=== PATIENT | female | born 1985 | race Caucasian/White ===

== ENCOUNTER → 2019-11-24 | Outpatient (CLI) | payer BC ==
[2019-11-24 07:44] LABS: HCT 44.5 % (34.0-46.0); HGB 14.6 gm/dL (11.4-16.0); MCH 28.8 pg (25.0-35.0); MCHC 32.8 g/dL (31.0-37.0); MCV 87.9 fL (80.0-100.0); Mean Platelet Volume 8.9; Platelet Count 276 k/uL (150-450); RBC 5.06 m/uL (3.80-5.40); WBC 7.6 k/uL (3.8-10.6)
[2019-11-24 13:08] LABS: ALT 34 U/L (8-44); AST 30 U/L (13-35); African American GFR (CKD) 130.1 (60.0-200.0); Alkaline Phosphatase 89 U/L (41-126); Amylase 74 U/L (23-121); BUN/Creat Ratio 15.71 Ratio (12.00-20.00); Bilirubin, Conjugated <0.20 mg/dL (0.20-0.40); Calcium 9.3 mg/dL (8.7-10.3); Carbon Dioxide 24.9 mmol/L (21.6-31.8); Chloride 106 mmol/L (96-109); Chol/HDL Ratio 2.63; Cholesterol 155 mg/dL (0-200); Glucose 95 mg/dL (70-110); LDL Cholesterol,Calculated 82.6 mg/dL (0.0-131.0); Non-African American GFR(CKD) 112.3 (60.0-200.0); Potassium 4.1 mmol/L (3.5-5.5); Sodium 139 mmol/L (135-145); Total Bilirubin 0.4 mg/dL (0.2-1.2); Total Protein 6.2 g/dL (6.2-8.2)
== END | disposition home or self-care (01) ==
LOC: LABWHC1 07:01
PROVIDERS: ATTEND Psychiatry & Neurology Pain Medicine
DX: Z00.00 Encounter for general adult medical examination without abnormal findings (principal); Z13.220 Encounter for screening for lipoid disorders; R10.10 Upper abdominal pain, unspecified; Z51.81 Encounter for therapeutic drug level monitoring
CPT/HCPCS: 36415; 80053; 80061; 82150; 82248; 83690; 85027

== ENCOUNTER 2021-07-29 06:45 | Day surgery (SDC) | payer BC ==
[2021-07-24 14:18] VITALS: BMI 47.9
[~2021-07-29 06:45] MED LIST: LACTATED RINGERS 1,000 ML IV SCH
[2021-07-29 07:31] VITALS: TEMP 98.2
--- NOTE | 2021-07-29 07:36 | P.GSHP ---
History of Present Illness H&P Date: 07/29/21 CHIEF COMPLAINT: GERD HISTORY OF PRESENT ILLNESS: The patient is a 36-year-old female who presents reports gastroesophageal reflux disease. Upper endoscopy was offered for further evaluation and management. PAST MEDICAL HISTORY: Please see list. PAST SURGICAL HISTORY: Please see list. MEDICATIONS: Please see list. ALLERGIES: Please see list. SOCIAL HISTORY: No illicit drug use FAMILY HISTORY: No reports of Crohn disease or ulcerative colitis. REVIEW OF ORGAN SYSTEMS: CONSTITUTIONAL: No reports of fevers or chills. GI: Denies any blood in stools or constipation. PHYSICAL EXAM: VITAL SIGNS: Stable GENERAL: Well-developed and pleasant in no acute distress. HEENT: No scleral icterus. Extraocular movements grossly intact. Moist buccal mucosa. NECK: Supple without lymphadenopathy. CHEST: Unlabored respirations. Equal bilateral excursions. CARDIOVASCULAR: Regular rate and rhythm. Distal 2+ pulses. ABDOMEN: Soft, nondistended. MUSCULOSKELETAL: No clubbing, cyanosis, or edema. ASSESSMENT: 1. Gastroesophageal reflux disease PLAN: 1. Recommend proceeding with an upper endoscopy Past Medical History Past Medical History: GERD/Reflux Additional Past Medical History / Comment(s): Occasional heart palpitations. Borderline DM with PCOS, no treatment. History of Any Multi-Drug Resistant Organisms: None Reported Past Surgical History: No Surgical Hx Reported Additional Past Surgical History / Comment(s): Pilonidal cyst removed. Past Anesthesia/Blood Transfusion Reactions: No Reported Reaction Past Psychological History: No Psychological Hx Reported Smoking Status: Former smoker Past Alcohol Use History: Occasional Additional Past Alcohol Use History / Comment(s): Quit smoking in 2010. Past Drug Use History: None Reported - Past Family History Father Family Medical History: Cancer Additional Family Medical History / Comment(s): Bladder cancer. Mother Additional Family Medical History / Comment(s): Non Hodgkins Lymphoma. Medications and Allergies Home Medications Medication Instructions Recorded Confirmed Type Ibuprofen [Motrin] 800 mg PO Q12H 07/03/21 07/24/21 History Omeprazole 20 mg PO BID 07/03/21 07/29/21 History Multivitamins, Thera [Multivitamin 1 tab PO HS 07/24/21 07/24/21 History (formulary)] Allergies Allergy/AdvReac Type Severity Reaction Status Date / Time No Known Allergies Allergy Verified 07/24/21 14:18 Surgical - Exam Vital Signs Temp Pulse Resp BP Pulse Ox 98.2 F 82 16 116/56 95 07/29/21 07:26 07/29/21 07:26 07/29/21 07:26 07/29/21 07:26 07/29/21 07:26
[2021-07-29 07:38] LABS: Glucose,Whole Blood 90 mg/dL (75-99)
[2021-07-29] MEDS ORDERED: LIDOCAINE 1% INJ 10MG/ML (20 ML MDV) ONE (07:39)
[2021-07-29] MEDS ORDERED: PROPOFOL 10 MG/ML 20 ML VIAL IV ONE (07:39)
[2021-07-29] MEDS ORDERED: GLYCOPYRROLATE 0.2 MG/ML 2 ML VIAL ONE (07:39)
[2021-07-29 08:39] VITALS: BP 120/70; PULSE 90; RESP 20
--- NOTE | 2021-07-29 08:39 | P.PCN ---
Date of Procedure: 07/29/21 Description of Procedure: PREOPERATIVE DIAGNOSIS: Gastroesophageal reflux disease. Morbid obesity. POSTOPERATIVE DIAGNOSIS: Morbid obesity. Gastritis. Gastroesophageal reflux disease. Gastric polyposis OPERATION: Esophagogastroduodenoscopy with biopsies along antrum. SURGEON: Antonette Alvarez MD ANESTHESIA: MAC. INDICATIONS: The patient is a 36-year-old female who presents with a history of reflux disease. Benefits and risks of the procedure were described. Informed consent was obtained. DESCRIPTION: The patient was brought into the endoscopy suite and laid in the left lateral decubitus position. An Olympus gastroscope was passed along the posterior oropharynx down to the distal esophagus where the squamocolumnar junction was encountered at 38 cm from the incisors. The stomach was entered and no bile reflux was found. Additional findings are listed below. Biopsies with cold forceps were obtained of the antrum. The first through third portion of the duodenum was examined and unremarkable. Retroflexion of the scope confirmed Hill grade 2 lower esophageal valve. The squamocolumnar junction demonstrated LA grade A erosive esophagitis. The stomach was desufflated. The patient tolerated the procedure well. FINDINGS: Squamocolumnar junction 38 cm from the incisors. Diaphragmatic hiatus at 38 cm. Hill grade 2 lower esophageal valve. LA grade A erosive esophagitis. No active duodenitis. Chronic gastritis Gastric polyposis RECOMMENDATIONS: Upper endoscopy as needed. Plan - Discharge Summary Discharge Rx Participant: No New Discharge Prescriptions: Continue Omeprazole 20 mg PO BID Multivitamins, Thera [Multivitamin (formulary)] 1 tab PO HS Ibuprofen [Motrin] 800 mg PO Q12H Discharge Medication List Ibuprofen [Motrin] 800 mg PO Q12H 07/03/21 [History] Omeprazole 20 mg PO BID 07/03/21 [History] Multivitamins, Thera [Multivitamin (formulary)] 1 tab PO HS 07/24/21 [History] [facility]Ref[facility] [facility] [place] [facility] [place] [facility] Patient Instructions/Handouts: Gastritis (DC), Diet for Stomach Ulcers and Gastritis (ED) Discharge Disposition: HOME SELF-CARE
== END 2021-07-29 08:54 | disposition home or self-care (01) ==
LOC: ORWHC2ENDO 06:45
PROVIDERS: ATTEND Surgery Plastic and Reconstructive Surgery
DX: K22.10 Ulcer of esophagus without bleeding (principal); K31.7 Polyp of stomach and duodenum; K29.70 Gastritis, unspecified, without bleeding; K29.50 Unspecified chronic gastritis without bleeding; K21.9 Gastro-esophageal reflux disease without esophagitis; R73.03 Prediabetes; E28.2 Polycystic ovarian syndrome; Z98.890 Other specified postprocedural states; Z80.52 Family history of malignant neoplasm of bladder; Z80.7 Family history of other malignant neoplasms of lymphoid, hematopoietic and related tissues; E66.01 Morbid (severe) obesity due to excess calories; Z68.42 Body mass index [BMI] 45.0-49.9, adult; Z79.1 Long term (current) use of non-steroidal anti-inflammatories (NSAID)
CPT/HCPCS: 81025; 88305; 88342; 43239; J2001; J2704

== ENCOUNTER → 2021-08-12 | Outpatient (CLI) | payer BC ==
--- NOTE | 2021-08-12 07:48 | US ---
EXAMINATION TYPE: US gallbladder DATE OF EXAM: 08/12/2021 COMPARISON: NONE CLINICAL HISTORY: R94.5 abnormal liver function test. pre bariatric surgery, h/o some abd pain, eleva mario alberto lft's EXAM MEASUREMENTS: Liver Length: 16.4 cm Gallbladder Wall: 0.3 cm CBD: 0.6 cm Right Kidney: 9.2 x 4.4 x 5.2 cm Pancreas: not seen due to bowel gas Liver: intercostal only due to bowel gas Gallbladder: 1.9cm stone seen Evidence for sonographic Jameson's sign: no CBD: wnl Right Kidney: wnl IMPRESSION: 1. Large right gallstone. CBD does measure at the upper limits of normal is 6 mm. If there is concern for biliary obstruction correlate with ERCP or MRCP as clinically warranted.
--- NOTE | 2021-08-12 12:24 | NM ---
Nuclear medicine hepatobiliary scan. HISTORY: Pain. DOSAGE: The patient received 4.5 mCi of Technetium 99m Choletec. FINDINGS: There is normal hepatic extraction. The cortical place the gallbladder is not seen at 4 phong rs. There is biliary to bowel clearance by 30 minutes. IMPRESSION: 1. Nonvisualization the gallbladder at 4 hours correlate for cholecystitis
== END | disposition home or self-care (01) ==
LOC: RADNMMAIN 07:18
PROVIDERS: ATTEND Surgery Plastic and Reconstructive Surgery
DX: K80.20 Calculus of gallbladder without cholecystitis without obstruction (principal); R93.2 Abnormal findings on diagnostic imaging of liver and biliary tract
CPT/HCPCS: 76705; 78226; A9537

== ENCOUNTER → 2021-08-20 | Outpatient (CLI) | payer BC ==
[2021-08-20 12:20] VITALS: BMI 48.6
== END ==
LOC: BARWHC3 08:41
PROVIDERS: ATTEND Surgery Plastic and Reconstructive Surgery
DX: E66.01 Morbid (severe) obesity due to excess calories (principal); Z71.3 Dietary counseling and surveillance; Z68.42 Body mass index [BMI] 45.0-49.9, adult
CPT/HCPCS: 97804

== ENCOUNTER → 2021-09-25 | Outpatient (CLI) | payer BC ==
--- NOTE | 2021-09-25 12:59 | CONS ---
CONSULTATION DATE OF SERVICE: 09/25/2021 This 36-year-old lady has been evaluated in [facility] for possible obstructive sleep apnea-hypopnea syndrome. HISTORY OF PRESENT ILLNESS/SLEEP-WAKE EVALUATION: Patient's usual sleep schedule on weekdays is from 8:30 p.m. until 6 or 6:30 a.m. and on weekends from 9 or 10 p.m. until 6:30 or 7 a.m. Sometimes she may have problems with falling asleep, has a TV set in the bedroom. She usually sleeps on the back and side positions. According to her , she snores and has episodes of stopped breathing during sleep. She also has episodes of heartburn at night. She wakes up from sleep up to 10 times with up to one episode of nocturia. No history of hypnagogic hallucinations, sleep paralysis or cataplexy. In the morning the patient wakes up tired, has difficulties paying attention. Friendship Sleepiness Scale is increased at 11. She may take a nap at 3 p.m. Usually does not feel refreshed after nap. No vivid dreams during naps. She drinks 3 caffeinated beverages during the day. PAST MEDICAL HISTORY: Positive for acid reflux. PAST SURGICAL HISTORY: Status post pilonidal cyst removed. Sinus problems. MEDICATIONS: 1. Omeprazole 20 mg twice a day. 2. Motrin 800 mg 3 times a day. FAMILY HISTORY: Sleep apnea, hypertension, heart problems, liver problems, thyroid problems. REVIEW OF SYSTEMS: Multiple awakenings from sleep, sleepiness during the day. No fevers. No double vision. No recent chest pain. No shortness of breath. No abdominal pain. No bleeding episodes. No blood in the urine. No seizure episodes. PHYSICAL EXAMINATION: GENERAL: Pleasant lady without distress. VITAL SIGNS: BP 143/71, HR 79, RR 16, height inches, weight 310.6 pounds, body mass index 47.5, temperature 97.5, oxygen saturation at room air 97. HEENT: PERRLA, EOMI, evaluation of oropharynx showed tongue protrudes midline. Extremely low position of soft palate; Mallampati IV. NECK: Supple, no JVD. Thyroid is not palpable. Neck is wide; 16-1/2 inches in circumference. LUNGS: Clear to percussion and to auscultation. Good air exchange. No wheezing or rhonchi. HEART: S1, S2 regular. No murmurs, gallops, or rubs. ABDOMEN: Obese. EXTREMITIES: No clubbing or cyanosis. STITCH WELDER: Awake, alert, and oriented X3. Cranial nerves 2 to 7 intact. There is no fasciculation or atrophy. noted. No focal deficits observed. IMPRESSION: 1. Snoring, witnessed episodes of stopped breathing during sleep, extremely low position of soft palate, Mallampati IV, wide neck, 16-1/2 inches in circumference, sleepiness. Friendship Sleepiness Scale increased to 11; obstructive sleep apnea- hypopnea syndrome. 2. Morbid obesity, body mass index 47.5. 3. Acid reflux. 4. History of sinusitis. 5. Status post pilonidal cyst removed. 6. Patient is preparing for bariatric surgery. PLAN: 1. Polysomnography for evaluation of patient's breathing during sleep. Polysomnography is preferable because of morbid obesity and possibility of obesity hypoventilation. 2. CPAP/BiPAP titration if sleep study confirms obstructive sleep apnea-hypopnea syndrome. 3. Preferable position during sleep on the side. 4. No driving if patient feels any sleepiness. 5. I will see patient for follow up visit to explain results of testing and following plan. Thank you very much for referring this patient for consultation. Sincerely, Donato Osborne MD, PhD, FAASM Diplomat of [employer] Sleep Medicine Board of [employer] Purchasing Clerk of [facility] Lafe MMODL / LAVELLEN: [id number] /
== END ==
LOC: SLEEP 11:20
PROVIDERS: ATTEND Internal Medicine
DX: G47.33 Obstructive sleep apnea (adult) (pediatric) (principal); E66.01 Morbid (severe) obesity due to excess calories; K21.9 Gastro-esophageal reflux disease without esophagitis; Z87.09 Personal history of other diseases of the respiratory system; Z68.42 Body mass index [BMI] 45.0-49.9, adult; Z98.890 Other specified postprocedural states; Z79.899 Other long term (current) drug therapy
CPT/HCPCS: 99211

== ENCOUNTER → 2022-06-04 | Outpatient (CLI) | payer BC ==
[2022-06-04 17:13] VITALS: BP 129/86; PULSE 87; RESP 16; TEMP 98.3; BMI 50.3
--- NOTE | 2022-06-04 17:40 | P.BASOAP ---
Subjective Progress Note Date: 06/04/22 She has gallstones. Wants the sleeve. [facility] reviewed with benefits and risks of both. Consent reviewed. Objective - Vital Signs Vital signs: Vital Signs Temp 98.3 F 06/04/22 17:10 Pulse 87 06/04/22 17:10 Resp 16 06/04/22 17:10 BP 129/86 06/04/22 17:10 Pulse Ox FiO2 Intake & Output 06/03/22 06/04/22 06/04/22 18:59 06:59 18:59 Weight 150.139 kg Assessment/Plan Plan: Date: 06/04/22 Initial Weight: 148.325 kg Initial BMI: 49.7 Current Weight: 150.139 kg Current BMI: 50.3 Type of Surgery: Total Volume in Band: Previous Volume: Volume Removed: Volume Added: Band Size:
== END | disposition home or self-care (01) ==
LOC: BARWHC3 16:19
PROVIDERS: ATTEND Surgery Plastic and Reconstructive Surgery
DX: E66.01 Morbid (severe) obesity due to excess calories (principal); K80.20 Calculus of gallbladder without cholecystitis without obstruction; Z68.42 Body mass index [BMI] 45.0-49.9, adult
CPT/HCPCS: 99211

== ENCOUNTER → 2022-06-26 | Outpatient (CLI) | payer BC ==
[2022-06-26 23:06] LABS: Basophils # (A) 0.08 X 10*3/uL (0.00-0.10); Basophils % (A) 0.7 %; Eosinophils # (A) 0.06 X 10*3/uL (0.04-0.35); Eosinophils % (A) 0.5 %; HCT 43.6 % (37.2-46.3); HGB 14.5 g/dL (12.0-15.0); Immature Grans, Automated 0.3 %; Lymphocytes # (A) 2.41 X 10*3/uL (0.90-5.00); Lymphocytes % (A) 20.7 %; MCH 29.1 pg (27.0-32.0); MCHC 33.3 g/dL (32.0-37.0); MCV 87.4 fL (80.0-97.0); Mean Platelet Volume 12.7 fL (9.5-12.2); Monocytes % (A) 5.1 %; NRBC Per 100 WBC 0 /100 WBCS (0.0-0.0); Neutrophils # (A) 8.49 X 10*3/uL (1.80-7.70); Neutrophils % (A) 72.7 %; Platelet Count 304 X 10*3/uL (140-440); RBC 4.99 X 10*6/uL (4.10-5.20); RDW 12.9 % (11.5-14.5); WBC 11.67 X 10*3/uL (4.50-10.00)
[2022-06-26 23:17] LABS: Albumin 4.3 g/dL (3.8-4.9); Albumin/Globulin Ratio 1.59 (1.60-3.17); Anion Gap 11.8 mmol/L (10.00-18.00); BUN/Creat Ratio 26.33 Ratio (12.00-20.00); Blood Urea Nitrogen 15.8 mg/dL (9.0-27.0); Calcium 9.2 mg/dL (8.7-10.3); Carbon Dioxide 24.2 mmol/L (20.0-27.5); Globulin 2.7 g/dL (1.6-3.3); Non-African American GFR(CKD) 115.6 (60.0-200.0); Potassium 3.9 mmol/L (3.5-5.5); Total Bilirubin 0.3 mg/dL (0.30-1.20)
== END | disposition home or self-care (01) ==
LOC: LABPAT 15:29
PROVIDERS: ATTEND Surgery Plastic and Reconstructive Surgery
DX: Z01.812 Encounter for preprocedural laboratory examination (principal)
CPT/HCPCS: 36415; 80053; 85025; 93005

== ENCOUNTER 2022-06-30 07:30 | Inpatient (IN) | payer BC ==
[~2022-06-30 07:30] MED LIST changes: +CHLORHEXIDINE GLUCONATE 15 ML CUP MUCOUS MEM PRN; +ENOXAPARIN 40 MG/0.4 ML SYRINGE SQ PRN; +HYDROmorphone 0.5 MG/0.5 ML SYRINGE IVP PRN; -LACTATED RINGERS 1,000 ML IV SCH; +MIDAZOLAM 2 MG/2 ML VIAL IV PRN; +PANTOPRAZOLE 40 MG/10 ML VIAL IVP PRN; +SCOPOLAMINE 1 MG/72 HR PATCH TRANSDERM ONE; +ceFAZolin 3 GM in SODIUM CHLORIDE 0.9% 100 ML IVPB PRN
[2022-06-30] MEDS ORDERED: ACETAMINOPHEN TAB 500 MG TAB PO STA (12:10)
--- NOTE | 2022-06-30 12:15 | P.GSHP ---
History of Present Illness H&P Date: 06/30/22 CHIEF COMPLAINT: Morbid obesity HISTORY OF PRESENT ILLNESS: Radhika Moore is a 37-year-old female with lifelong morbid obesity. As a result of her morbid obesity, she has lower back pain, hip pain, knee pain, and ankle pain. She has polycystic ovarian syndrome with insulin resistance. She reports gastroesophageal reflux disease. She comes in with gallstones. She is looking into the sleeve gastrectomy. At height of 5 feet 8 inches, her ideal body weight is 163 pounds. She comes in 321 pounds from 318 pounds, 6 months ago. Her highest weight is 321 pounds, BMI 49.0. Her body mass index is 49.0. She is 158 pounds overweight. PAST MEDICAL HISTORY: 1. Morbid obesity due to excess calories 2. Body mass index of 48.5, initial 3. Gastroesophageal reflux disease 4. Diabetes type II 5. Polycystic ovarian syndrome 6. Hiatal hernia 7. Garcia's esophagus 8. 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 Osteoarthritis of the bilateral knees 11. Osteoarthritis of the ankles PAST SURGICAL HISTORY: 1. Pilonidal cyst excision 2. Upper endoscopy HOME MEDICATIONS: Home Medications Medication Instructions Recorded Confirmed Ibuprofen [Motrin] 800 mg PO Q12H 07/03/21 08/14/21 Omeprazole 20 mg PO BID 07/03/21 08/14/21 Multivitamins, Thera [Multivitamin 1 tab PO HS 07/24/21 08/14/21 (formulary)] ALLERGIES: Allergies Allergy/AdvReac Type Severity Reaction Status Date / Time No Known Allergies Allergy Verified 08/14/21 15:22 SOCIAL HISTORY: Past tobacco use. FAMILY HISTORY: No family history of ulcerative colitis disease or Crohn's disease. Family history of morbid obesity. No lupus in the family. No reports of stomach or esophageal cancer. She has grandmother with obesity. REVIEW OF ORGAN SYSTEMS: CONSTITUTIONAL: At height of 5 feet 8 inches, her ideal body weight is 163 pounds. She comes in 321 pounds. Her body mass index is 49.0. She is 158 pounds overweight. HEENT: Denies any active troubles with vision or hearing. ENDOCRINE: Has diabetes with polycystic ovarian syndrome. No hypothyroidism. CARDIOVASCULAR: Past reports of palpitations or heart attacks or chest pain. RESPIRATORY: Denies asthma. GASTROINTESTINAL: Denies any bright red blood per rectum. No diarrhea. No constipation. Has gastroesophageal reflux disease. GENITOURINARY: Denies bladder urgency. No recent blood in urine MUSCULOSKELETAL: Has lower back pain and joint pain. Has osteoarthritis of the knees. NEURO: No headaches. No seizure disorders. PSYCH: Deniesdepression. No suicidal ideation. RHEUMATOLOGIC: No lupus. No rheumatoid arthritis. HEMATOLOGIC: Denies any abnormal bleeding or bruising. SKIN: No rash. No skin cancer. PHYSICAL EXAM: VITAL SIGNS: Height 5 foot 8 inches, weight 321 pounds. BMI 49.0 GENERAL: Well-developed in no acute distress. HEENT: No scleral icterus. Extraocular movements grossly intact. Hears conversational speech. No nasal drainage. NECK: Supple without lymphadenopathy. CHEST: Nonlabored respirations with equal bilateral excursions. CARDIOVASCULAR: Regular rate and regular rhythm. Distal 2+ pulses. ABDOMEN: Obese, soft, nontender, nondistended. MUSCULOSKELETAL: No clubbing, cyanosis. NEURO: No focal or lateralizing signs. Cranial nerves 2 through 12 grossly within normal limits. PSYCH: Appropriate affect. Alert and oriented to person, place and time. SKIN: Good skin turgor. Well perfused. STUDIES: Ultrasound of the gallbladder independently reviewed with large gallstone. This is my independent interpretation. RADIOLOGY: Nuclear medicine study HIDA demonstrates features of cholecystitis ASSESSMENT: 1. Morbid obesity due to excess calories 2. Body mass index of 49.0 3. Gastroesophageal reflux disease 4. Diabetes type II 5. Polycystic ovarian syndrome 6. Hiatal hernia 7. Garcia's esophagus 8. 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 Osteoarthritis of the bilateral knees 11. Osteoarthritis of the ankles 12. Gallstones with cholecystitis 13. Zinc deficiency 14. Iron deficiency PLAN: 1. Bariatric options between a sleeve, band and a Joel-en-Y gastric bypass were reviewed in detail. The patient elected for a sleeve gastrectomy. Robotic assisted approach described. 2. The [place] [facility] Data was also reviewed with benefits and risks as described. 3. An 8 page second-generation bariatric consent form was reviewed in detail including potential of bleeding, infection, leaks, adequate weight loss, nutritional deficiencies which the patient demonstrated understanding of the risks. 4. A 2 week high-protein low caloric 800 kcal diet described to address hepatomegaly. 5. Preoperative labs including complete metabolic panel and CBC with type and screen recommended. 6. DVT prophylaxis per [place] [facility]. 7. Antibiotic prophylaxis. 8. Inpatient hospitalization anticipated for more than 2 nights. 9. All questions and concerns were addressed with the patient. 10. The patient is at elevated risk for perioperative complications with sleep apnea and hypertensive heart disease. 11. Overall, patient has expressed understanding of bariatric care including postoperative diet and commitment of lifestyle. Patient should benefit from surgical intervention for correction of morbid obesity. 12. She has symptomatic gallstones with cholecystectomy also described Past Medical History Past Medical History: GERD/Reflux Additional Past Medical History / Comment(s): Occasional heart palpitations. Borderline DM with PCOS, no treatment. History of Any Multi-Drug Resistant Organisms: None Reported Past Surgical History: No Surgical Hx Reported Additional Past Surgical History / Comment(s): Pilonidal cyst removed. Past Anesthesia/Blood Transfusion Reactions: No Reported Reaction Past Psychological History: No Psychological Hx Reported Smoking Status: Former smoker Past Alcohol Use History: Occasional Additional Past Alcohol Use History / Comment(s): Quit smoking in 2010. Past Drug Use History: None Reported - Past Family History Father Family Medical History: Cancer Additional Family Medical History / Comment(s): Bladder cancer. Mother Family Medical History: Cancer Additional Family Medical History / Comment(s): Non Hodgkins Lymphoma. Medications and Allergies Home Medications Medication Instructions Recorded Confirmed Type Ibuprofen [Motrin] 800 mg PO Q12H 07/03/21 06/24/22 History Omeprazole 20 mg PO BID 07/03/21 06/24/22 History Multivitamins, Thera [Multivitamin 1 tab PO HS 07/24/21 06/24/22 History (formulary)] Allergies Allergy/AdvReac Type Severity Reaction Status Date / Time No Known Allergies Allergy Verified 06/24/22 17:00 Surgical - Exam Vital Signs Temp Pulse Resp BP Pulse Ox 97.8 F 97 20 144/62 96 06/30/22 12:06 06/30/22 12:06 06/30/22 12:06 06/30/22 12:06 06/30/22 12:06
[2022-06-30] MEDS: LACTATED RINGERS 1,000 ML IV SCH ×2 (12:20→14:14)
[2022-06-30 12:25] LABS: Glucose,Whole Blood 72 mg/dL (70-110)
[2022-06-30] MEDS: DEXAMETHASONE SOD PHOSPHATE 4 MG/ML 1 ML VIAL IV ONE ×2 (12:37→18:53)
[2022-06-30] MEDS: GABAPENTIN 300 MG CAP PO STA ×2 (12:38→18:53)
[2022-06-30] MEDS: SCOPOLAMINE 1 MG/72 HR PATCH TRANSDERM STA ×2 (12:38→18:53)
[2022-06-30] MEDS: ONDANSETRON 4 MG/2 ML VIAL IVP ONE ×2 (12:38→18:53)
[2022-06-30] MEDS: MELOXICAM 7.5 MG TAB PO SCH ×2 (12:39→18:53)
[2022-06-30] MEDS ORDERED: SUCCINYLCHOLINE CHLORIDE 200 MG/10 ML VIAL IV ONE (14:10)
[2022-06-30] MEDS ORDERED: HYDROmorphone (PF) 1 MG/ML ONE (14:10)
[2022-06-30] MEDS ORDERED: ROCURONIUM 10 MG/ML (5 ML VIAL) IV ONE (14:10)
[2022-06-30] MEDS ORDERED: GLYCOPYRROLATE 0.2 MG/ML 2 ML VIAL ONE (14:10)
[2022-06-30] MEDS ORDERED: NEOSTIGMINE 1 MG/ML 10 ML VIAL ONE (14:10)
[2022-06-30] MEDS ORDERED: LIDOCAINE 2% INJ 20 MG/ML (2 ML VIAL) ONE (14:10)
[2022-06-30] MEDS ORDERED: PROPOFOL 10 MG/ML 20 ML VIAL IV ONE (14:10)
[2022-06-30] MEDS ORDERED: MIDAZOLAM 2 MG/2 ML VIAL ONE (14:10)
[2022-06-30] MEDS ORDERED: fentaNYL (PF) 50 MCG/ML 2 ML AMP ONE (14:10)
[2022-06-30] MEDS ORDERED: INDOCYANINE GREEN 25 MG VIAL IV STA (14:30)
[2022-06-30] MEDS ORDERED: BUPIVACAIN-EPI 0.25%-1:200,000 30 ML VIAL SQ ONE ×2 (14:42→14:43)
[2022-06-30] MEDS ORDERED: LACTATED RINGERS 1,000 ML IV ONE (16:27)
[2022-06-30] MEDS ORDERED: NALOXONE 0.4 MG/ML 1 ML VIAL IV PRN (16:47)
[2022-06-30] MEDS ORDERED: fentaNYL PCA 500 MCG/50 ML BAG IV PRN (16:48)
[2022-06-30] MEDS ORDERED: METOCLOPRAMIDE 5 MG/ML 2 ML VIAL IVP PRN (16:48)
[2022-06-30] MEDS ORDERED: SODIUM CHLORIDE 0.9% 2,000 ML IV ONE (16:48)
--- NOTE | 2022-06-30 16:56 | P.OP ---
Date of Procedure: 06/30/22 Description of Procedure: SURGEON: AUDREY CURRY MD PREOPERATIVE DIAGNOSES: 1. Morbid obesity due to excess calories 2. Body mass index of 49.0 3. Gastroesophageal reflux disease 4. Diabetes type II 5. Polycystic ovarian syndrome 6. Hiatal hernia 7. Garcia's esophagus 8. 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 Osteoarthritis of the bilateral knees 11. Osteoarthritis of the ankles 12. Gallstones with cholecystitis 13. Zinc deficiency 14. Iron deficiency POSTOPERATIVE DIAGNOSES: 1. Morbid obesity due to excess calories 2. Body mass index of 49.0 3. Gastroesophageal reflux disease 4. Diabetes type II 5. Polycystic ovarian syndrome 6. Hiatal hernia 7. Garcia's esophagus 8. 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 Osteoarthritis of the bilateral knees 11. Osteoarthritis of the ankles 12. Gallstones with cholecystitis 13. Zinc deficiency 14. Iron deficiency OPERATION: 1. Robotic assisted daVinci Xi laparoscopic sleeve gastrectomy with 40-Polish bougie, multiport. 2. Robotic assisted daVinci Xi laparoscopic cholecystectomy with FIREFLY, multiport. 3. Intraoperative esophagogastroduodenoscopy. ANESTHESIA: Gen. local anesthetic ESTIMATED BLOOD LOSS: 20 mL SPECIMENS REMOVED: Sleeve gastrectomy and gallbladder COMPLICATIONS: None. FINDINGS: 1. Negative intraoperative esophagogastrojejunoscopy leak test. 2. No hepatomegaly or large hiatus hernia. 3. Total of 6 staplers used including 2 - 60 mm green robot angy and 4 - 60 mm blue loads used to create the gastric sleeve. 4. 27 cm x 5 cm sleeve gastrectomy specimen INDICATIONS: Radhika Moore is a 37-year-old female with lifelong morbid obesity. As a result of her morbid obesity, she has lower back pain, hip pain, knee pain, and ankle pain. She has polycystic ovarian syndrome with insulin resistance. She reports gastroesophageal reflux disease. She comes in with gallstones. She is looking into the sleeve gastrectomy. At height of 5 feet 8 inches, her ideal body weight is 163 pounds. She comes in 321 pounds from 318 pounds, 6 months ago. Her highest weight is 321 pounds, BMI 49.0. Her body mass index is 49.0. She is 158 pounds overweight. All surgical options for morbid obesity had been described using the [place] bariatric surgery collaborative comorbidity resolution including complication risk score. A second-generation bariatric consent form was described in detail including the possibility of protein malnutrition, leaks, gastric stricture, venous thrombosis, gastroesophageal reflux disease, need for further surgery for which she demonstrated understanding. Additionally she had clinical cholecystitis for which cholecystectomy was described. Benefits and risks of the procedure were described at length. Informed consent was obtained. DESCRIPTION: The patient was brought into the operating room theater. Preoperatively she had received Lovenox subcutaneously for DVT prophylaxis. Additionally she had Peridex oral solution as an oral decontaminant. After general induction, the abdomen was prepped and draped in standard sterile fashion. An Ioban draping was placed along the abdomen. No wright catheter was placed A robotic da Simi Xi system was prepped and primed. At 15 cm from the xiphoid, proposed port sites were marked with indelible marker along the anterior axillary line bilaterally, mid axillary line bilaterally with each ports were marked 10 to 15 cm from each other. The visitor service assistant port was marked along the left lateral abdominal wall. The robotic stapler port was marked for the right midclavicular line. A 5 mm 0 degrees laparoscopic trocar entry was performed along the left upper quadrant. The abdomen was insufflated to 15 mmHg pressure was tolerated well. Diagnostic laparoscopy demonstrated no injury to bowel, viscera, or mesentery. The liver surface was unremarkable. No injury had occurred to the small bowel or viscera. Along the hiatus no evidence of prominent hiatal hernia. A 12 mm port was placed along the left upper abdominal wall after exchanging the 5 mm port. Another port was placed along the left lateral abdominal wall 8 mm. A separate 8 mm port was placed along the epigastrium and a 12-mm port placed along the right upper quadrant. Please note that the ports were placed at least 20 cm away from the target anatomy. Another port was placed along the right lateral abdominal wall, 8 mm trocar. Care was taken to check each robotic arms were safely away from collision with the bed or the patient. I had sat at the console. At the epigastrium, a median sized Jhoan liver retractor was placed under direct visualization with the Iron Accessories Repairer placed under the right shoulder of the patient. Next, 12-mm robot stapler port was placed along the right upper quadrant. The camera 8-mm port was maintained along the epigastrium. The patient was repositioned in reverse Trendelenburg position at 21-degrees after lowering the bed. The robot was docked along the left side of the patient. Using a grasper for arm 2, a hook cautery for arm 3, including grasper for arm 1, the robotic system was docked and primed as described. Instruments including Bovie cautery, vessel sealer, and staplers, and clips were interchanged by the visitor service assistant for stapler loads. The camera was placed at 30-degrees down. Attention is now brought to her gallbladder. Adhesions were identified along the infundibulum of the gallbladder and addressed using hook cautery and vessel sealer. The gallbladder fundus was retracted over the dome of the liver. Initial attention was brought to the infundibulum which was gently retracted in the inferior lateral approach. A dome down technique was performed from the fundus to the infundibulum. Using a grasper, the cystic duct including the cystic artery was carefully skeletonized. FIREFLY was used to identify the cystic artery and cystic structures. Large PLASTIC clips were used throughout the entire case. Using a clip dental associate 1 clip was placed proximally, and 1 clip was placed distally along the cystic duct and then cauterized. Again care was taken to avoid any injury to the biliary tree as the common bile duct was clearly visualized during this portion of dissection. Next, the cystic artery was similarly clipped and cauterized. Attention was brought to the sleeve gastrectomy portion of the case. The pylorus was identified and 6 cm proximally along the greater curvature of the stomach, the short gastrics were mobilized upwards to the angle of His using a vessel sealer. Redundant and adherent gastric cardia was addressed similarly and carefully with vessel sealer. Hemostasis was excellent during this portion of the procedure. A 40-Polish blunt-tipped bougie was placed into the stomach. Robotic stapler green loads 60 mm x 2 and 60 mm 4 blue loads were used to create the sleeve. Initial firing was across the antrum of the stomach towards the angle of His. The staple line was completely hemostatic and linear without corkscrewing. Hemostasis was excellent. The space from the angularis incisura of the sleeve was approximately 4 cm. Electro-Bovie cautery was used to remove the gallbladder from the hepatic fossa. Hemostasis was checked and found to be adequate. I then went to the head of the bed to perform the intraoperative esophagogastroduodenoscopy leak test. The upper pole of the stomach was bathed using normal saline solution. The scope was withdrawn with careful inspection along the staple line for which no leaks were found along the entire length. Additionally, the sleeve was completely hemostatic without any encroachment along the angularis incisura. Gastric polyps are identified. Its topology was a soft "J". No stricture was encountered upon placement of the scope. The GI tract was desufflated. The patient tolerated this portion of the procedure well. The scope was completely withdrawn. The robot was undocked. I then rescrubbed into case, whereby the irrigation fluid was aspirated from the abdominal cavity. Tisseal fibrin sealant was placed along the entire staple length. Once dried the Jhoan liver retractor was removed. Attention was now brought to removal of the specimens including the gallbladder. Gallbladder was removed using Endo Catch bag. The distal end of the sleeve gastrectomy specimen was brought out through the 12 mm port at the left upper quadrant. The specimen was gently removed en total, corresponding to 27 cm x 5 cm sleeve gastrectomy specimen. No contamination had occurred during this process. All instruments and pneumoperitoneum including irrigation fluid was removed from the abdominal cavity. The 12 mm port site was irrigated with warm normal saline solution and diluted hydron peroxide. The final incisions were closed using subcuticular interrupted suture of 4-0 Monocryl. Dermabond was applied to the skin once the skin had been cleansed. OptiFoam dressing was placed along the stomach extraction site. At the end of the procedure, needle, sponge, and instrument count was verified correct by the durable medical equipment technician. The patient was taken to the postanesthesia care unit in stable condition. She had tolerated the procedure well. Intraoperative films and findings were reviewed with the patient's family.
[2022-06-30] MEDS: ONDANSETRON 4 MG/2 ML VIAL IVP SCH (17:18)
[2022-06-30] MEDS: DEXAMETHASONE SOD PHOSPHATE 4 MG/ML 1 ML VIAL IVP SCH (19:55)
[2022-06-30] MEDS ORDERED: DEXAMETHASONE SOD PHOSPHATE 10 MG/ML 1 ML VIAL IVP ONE (20:00)
[2022-06-30] MEDS: ACETAMINOPHEN IV (For NPO) 1,000 MG in EMPTY BAG 1 BAG IVPB SCH ×2 (20:20→23:56)
[2022-06-30] MEDS: ALBUTEROL NEBULIZED 2.5 MG/3 ML INHALATION SCH (20:51)
[2022-06-30] MEDS: 0.9% NACL WITH KCL 20 MEQ/L 1,000 ML IV SCH (23:51)
[2022-07-01] MEDS: 0.9% NACL WITH KCL 20 MEQ/L 1,000 ML IV SCH ×2 (00:26→09:55)
[2022-07-01] MEDS: ceFAZolin 3 GM in SODIUM CHLORIDE 0.9% 100 ML IVPB SCH ×2 (00:26→08:45)
[2022-07-01] MEDS: SIMETHICONE 40 MG/0.6 ML DROPS 2,000 MG/30 ML BOTTLE PO SCH ×4 (01:06→14:29)
[2022-07-01] MEDS: DEXAMETHASONE SOD PHOSPHATE 4 MG/ML 1 ML VIAL IVP SCH ×3 (01:10→11:40)
[2022-07-01] MEDS: ONDANSETRON 4 MG/2 ML VIAL IVP SCH ×3 (01:11→11:40)
[2022-07-01] MEDS: LACTATED RINGERS 1,000 ML IV SCH (06:14)
[2022-07-01] MEDS: ACETAMINOPHEN IV (For NPO) 1,000 MG in EMPTY BAG 1 BAG IVPB SCH ×2 (06:15→11:41)
[2022-07-01] MEDS: ALBUTEROL NEBULIZED 2.5 MG/3 ML INHALATION SCH ×2 (07:38→11:04)
[2022-07-01] MEDS ORDERED: 0.9% NACL WITH KCL 20 MEQ/L 1,000 ML IV SCH (08:00)
[2022-07-01] MEDS: MELOXICAM 7.5 MG TAB PO SCH (08:06)
[2022-07-01] MEDS ORDERED: ENOXAPARIN 40 MG/0.4 ML SYRINGE SQ SCH (09:00)
--- NOTE | 2022-07-01 10:15 | FL ---
SINGLE CONTRAST UPPER GI EXAMINATION: CLINICAL HISTORY: 37-year-old female postop bariatric surgery, status sleeve gastrectomy yesterday. TECHNIQUE: Single contrast exam performed with 50 ml Isovue-370 contrast. Total fluoroscopy time: 1 minute 27 seconds. Total images: 25. FINDINGS: The patient swallowed oral contrast without difficulty or delay. Esophageal peristalsis and motility are within normal limits. There is prompt passage of contrast from the esophagus into the proximal s tomach. There is significant delay and subsequent passage across the gastric sleeve. Eventual trickle stream along the length of the sleeve and prompt progression into the duodenum. There is no evidence of contrast extravasation to suggest leak. Trace postsurgical air below the right hemidiaphragm. IMPRESSION: 1. No evidence for leak status post sleeve gastrectomy. 2. Moderate relative obstruction at the level of the sleeve probably due to prominent postoperative e domingo. Follow-up may be needed. Recommend extra caution when advancing the patient's diet. 3. Trace postsurgical free air below the right hemidiaphragm.
[2022-07-01 11:02] LABS: Basophils # (A) 0.01 X 10*3/uL (0.00-0.10); Basophils % (A) 0.1 %; Eosinophils # (A) 0 X 10*3/uL (0.04-0.35); Eosinophils % (A) 0 %; HCT 39.6 % (37.2-46.3); HGB 13.4 g/dL (12.0-15.0); Immature Grans, Automated 0.5 %; Lymphocytes % (A) 6.7 %; MCH 29.2 pg (27.0-32.0); MCHC 33.8 g/dL (32.0-37.0); MCV 86.3 fL (80.0-97.0); Mean Platelet Volume 11.9 fL (9.5-12.2); Monocytes # (A) 0.15 X 10*3/uL (0.20-1.00); Monocytes % (A) 1.2 %; NRBC Per 100 WBC 0 /100 WBCS (0.0-0.0); Neutrophils # (A) 11.01 X 10*3/uL (1.80-7.70); Neutrophils % (A) 91.5 %; Platelet Count 320 X 10*3/uL (140-440); RBC 4.59 X 10*6/uL (4.10-5.20); WBC 12.03 X 10*3/uL (4.50-10.00)
[2022-07-01 11:22] LABS: Anion Gap 13.5 mmol/L (10.00-18.00); Blood Urea Nitrogen 8.8 mg/dL (9.0-27.0); Calcium 8.8 mg/dL (8.7-10.3); Carbon Dioxide 18.5 mmol/L (20.0-27.5); Non-African American GFR(CKD) 115.6 (60.0-200.0); Potassium 4.6 mmol/L (3.5-5.5)
--- NOTE | 2022-07-01 12:14 | P.PN ---
Subjective Progress Note Date: 07/01/22 CHIEF COMPLAINT: Morbid obesity HISTORY OF PRESENT ILLNESS: Radhika Moore is a 37-year-old female with lifelong morbid obesity status post sleeve gastrectomy, 06/30/2022. No issues overnight. No reports of nausea or vomiting. No chest pain. Pain is well- controlled. REVIEW OF ORGAN SYSTEMS: No fevers or chills. No chest pain. No nausea and vomiting. PHYSICAL EXAM: VITAL SIGNS: Reviewed. GENERAL: Well-developed in no acute distress. HEENT: No scleral icterus. Extraocular movements grossly intact. Hears conversational speech. No nasal drainage. NECK: Supple without lymphadenopathy. CHEST: Nonlabored respirations with equal bilateral excursions. CARDIOVASCULAR: Regular rate and regular rhythm. Distal 2+ pulses. ABDOMEN: Incisions clean dry and intact. MUSCULOSKELETAL: No clubbing, cyanosis. NEURO: No focal or lateralizing signs. Cranial nerves 2 through 12 grossly withi n normal limits. PSYCH: Appropriate affect. Alert and oriented to person, place and time. SKIN: Good skin turgor. Well perfused. STUDIES: Esophagram in the pelvis revealed without leak. Per radiology report, moderate obstruction. ASSESSMENT: 1. Morbid obesity due to excess calories 2. Body mass index of 49.0 3. Gastroesophageal reflux disease 4. Diabetes type II 5. Polycystic ovarian syndrome 6. Hiatal hernia 7. Garcia's esophagus 8. 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 Osteoarthritis of the bilateral knees 11. Osteoarthritis of the ankles 12. Gallstones with cholecystitis 13. Zinc deficiency 14. Iron deficiency 15. Status post sleeve gastrectomy 16. Status post cholecystectomy PLAN: 1. Clinically doing well. Encourage oral intake. 2. Disposition in 24 hours with follow-up in the bariatric center 3 days. Objective - Vital Signs Vital signs: Vital Signs Temp 98.6 F 07/01/22 07:42 Pulse 99 07/01/22 07:50 Resp 18 07/01/22 07:42 BP 114/70 07/01/22 07:42 Pulse Ox 93 L 07/01/22 07:42 FiO2 Intake & Output 06/30/22 07/01/22 07/01/22 18:59 06:59 18:59 Intake Total 1750 Output Total 20 Balance 1730 Weight 143.1 kg Intake: IV 1750 Output: Estimated Blood Loss 20 Other: Voiding Method Toilet # Voids 1 - Labs CBC & Chem 7: 07/01/22 07:21 07/01/22 07:21
[2022-07-01 12:26] VITALS: BMI 47.9
[2022-07-01 13:46] VITALS: BP 135/64; PULSE 94; RESP 16; TEMP 98
--- NOTE | 2022-07-01 14:53 | P.DS ---
Providers Date of admission: 06/30/22 11:29 Expected date of discharge: 07/01/22 Attending physician: Antonette Alvarez Primary care physician: Louann Bob Hospital Course: POSTOPERATIVE DIAGNOSES: 1. Morbid obesity due to excess calories 2. Body mass index of 49.0 3. Gastroesophageal reflux disease 4. Diabetes type II 5. Polycystic ovarian syndrome 6. Hiatal hernia 7. Garcia's esophagus 8. 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 Osteoarthritis of the bilateral knees 11. Osteoarthritis of the ankles 12. Gallstones with cholecystitis 13. Zinc deficiency 14. Iron deficiency COURSE: The patient is a 37-year-old female with morbid obesity Who underwentsleeve gastrectomy. Postoperatively, she was tolerating liquids. Discharge instructions were reviewed in detail. Esophagram was reviewed without leaks with mild obstruction which improved. Patient was stable for discharge. Discharge diet including IV fluid hydration described. Procedures: OPERATION: 1. Robotic assisted daVinci Xi laparoscopic sleeve gastrectomy with 40-Albanian bougie, multiport. 2. Robotic assisted daVinci Xi laparoscopic cholecystectomy with FIREFLY, mult iport. 3. Intraoperative esophagogastroduodenoscopy. ANESTHESIA: Gen. local anesthetic ESTIMATED BLOOD LOSS: 20 mL SPECIMENS REMOVED: Sleeve gastrectomy and gallbladder COMPLICATIONS: None. FINDINGS: 1. Negative intraoperative esophagogastrojejunoscopy leak test. 2. No hepatomegaly or large hiatus hernia. 3. Total of 6 staplers used including 2 - 60 mm green robot angy and 4 - 60 mm blue loads used to create the gastric sleeve. 4. 27 cm x 5 cm sleeve gastrectomy specimen INDICATIONS: Radhika Moore is a 37-year-old female with lifelong morbid obesity. As a result of her morbid obesity, she has lower back pain, hip pain, knee pain, and ankle pain. She has polycystic ovarian syndrome with insulin resistance. She reports gastroesophageal reflux disease. She comes in with gallstones. She is looking into the sleeve gastrectomy. Patient Condition at Discharge: Stable Plan - Discharge Summary Discharge Rx Participant: Yes New Discharge Prescriptions: New Simethicone 40 mg/0.6 ml Drops [Mylicon Drops] 40 mg PO PCHS PRN #30 ml PRN Reason: Gas Ondansetron Odt [Zofran Odt] 4 mg PO Q8HR PRN #9 tab PRN Reason: Nausea bisacodyL [Dulcolax] 5 mg PO DAILY PRN #10 tab PRN Reason: Constipation Omeprazole [PriLOSEC] 40 mg PO DAILY #30 cap Acetaminophen Tab [Tylenol Tab] 1,000 mg PO Q6HR PRN #30 tablet PRN Reason: Pain Discontinued Omeprazole 20 mg PO BID Multivitamins, Thera [Multivitamin (formulary)] 1 tab PO HS Ibuprofen [Motrin] 800 mg PO Q12H Discharge Medication List Acetaminophen Tab [Tylenol Tab] 1,000 mg PO Q6HR PRN #30 tablet 07/01/22 [Rx] Omeprazole [PriLOSEC] 40 mg PO DAILY #30 cap 07/01/22 [Rx] Ondansetron Odt [Zofran Odt] 4 mg PO Q8HR PRN #9 tab 07/01/22 [Rx] Simethicone 40 mg/0.6 ml Drops [Mylicon Drops] 40 mg PO PCHS PRN #30 ml 07/01/22 [Rx] bisacodyL [Dulcolax] 5 mg PO DAILY PRN #10 tab 07/01/22 [Rx] Follow up Appointment(s)/Referral(s): [place], [place] [NON-STAFF] - 07/04/22 9:00 am Patient Instructions/Handouts: *Surgery [facility] - Scopalamine Patch Instructions, Nutrition after Bariatric Surgery (GEN), Laparoscopic Sleeve Gastrectomy (DC), Deep Vein Thrombosis Prevention (DC) Activity/Diet/Wound Care/Special Instructions: Liquid diet only for 2 weeks until Jul 14 No lifting over 4 pounds in 4 weeks, Jul 30 May Shower. No soaking in bath tubs 2 weeks until Jul 14 Please notify your surgeon if you develop nausea and vomiting including new onset of abdominal pain. Continue to use incentive spirometry to prevent pneumonias. Please continue to ambulate at home to prevent blood clots in legs. Follow-up at the bariatric center. May shower. Dressings to be discontinued by surgeon in the office. Drink 64 oz of fluid daily. Start protein shakes on . Notify bariatric center for temp over 101.0, increased pain, drainage from incisions. No straws or carbonated beverages. Liquid diet only. Sugar content should be less than 6 g to avoid dumping syndrome. Take MOM for constipation. CRUSH, OPEN, OR CUT TABLETS LARGER THAN A SIZE OF A TIC TAC Discharge Disposition: HOME SELF-CARE
[2022-07-01 16:33] LABS: Magnesium 2.1 mg/dL (1.5-2.4)
== END 2022-07-01 15:44 | disposition home or self-care (01) | DRG 620 ==
LOC: 2ORMAIN 11:29 → 4SSUR 16:49
PROVIDERS: ADMIT Surgery Plastic and Reconstructive Surgery; ATTEND Surgery Plastic and Reconstructive Surgery
PROC: 0DJ08ZZ Inspection of Upper Intestinal Tract, Via Natural or Artificial Opening Endoscopic (ICD-10-PCS; 2022-06-30)
PROC: 8E0W4CZ Robotic Assisted Procedure of Trunk Region, Percutaneous Endoscopic Approach (ICD-10-PCS; 2022-06-30)
PROC: 0DB64Z3 Excision of Stomach, Percutaneous Endoscopic Approach, Vertical (ICD-10-PCS; principal; 2022-06-30 13:40)
PROC: 0FT44ZZ Resection of Gallbladder, Percutaneous Endoscopic Approach (ICD-10-PCS; 2022-06-30 13:40)
DX: E66.01 Morbid (severe) obesity due to excess calories (principal); K80.10 Calculus of gallbladder with chronic cholecystitis without obstruction; E11.9 Type 2 diabetes mellitus without complications; E28.2 Polycystic ovarian syndrome; E60 Dietary zinc deficiency; E61.1 Iron deficiency; E88.81 Metabolic syndrome and other insulin resistance; K21.9 Gastro-esophageal reflux disease without esophagitis; K22.70 Barrett's esophagus without dysplasia; K31.7 Polyp of stomach and duodenum; K44.9 Diaphragmatic hernia without obstruction or gangrene; M16.0 Bilateral primary osteoarthritis of hip; M17.0 Bilateral primary osteoarthritis of knee; Z68.42 Body mass index [BMI] 45.0-49.9, adult; Z80.7 Family history of other malignant neoplasms of lymphoid, hematopoietic and related tissues; Z87.891 Personal history of nicotine dependence
CPT/HCPCS: 74240; 80051; 81025; 82310; 82565; 83735; 84100; 84520; 85025; 86850; 86900; 86901; 88304; 88307; 94640; 94760

== ENCOUNTER → 2022-07-04 | Outpatient (CLI) | payer BC ==
--- NOTE | 2022-07-04 09:35 | P.BASOAP ---
Subjective Progress Note Date: 07/04/22 She has lost 20 pounds in 1 month. Pain well-controlled. No infection. Dressing removed without infection. Recommend abdominal binder.*Protein shakes. She is using primary protein. She denies dehydration. Has appropriate mild reflux. Recommend follow-up in 1 week. Agreeable for return to work in 2 weeks and she works from home. All questions addressed. Assessment/Plan Plan: Date: Initial Weight: 148.325 kg Initial BMI: Current Weight: Current BMI: Type of Surgery: Total Volume in Band: Previous Volume: Volume Removed: Volume Added: Band Size:
[2022-07-04 09:43] VITALS: BP 123/81; PULSE 76; RESP 16; TEMP 98.2; BMI 47.2
== END | disposition home or self-care (01) ==
LOC: BARWHC3 08:51
PROVIDERS: ATTEND Surgery Plastic and Reconstructive Surgery
DX: E66.01 Morbid (severe) obesity due to excess calories (principal); Z68.42 Body mass index [BMI] 45.0-49.9, adult
CPT/HCPCS: 99211

== ENCOUNTER → 2022-07-24 | Outpatient (CLI) | payer BC ==
[2022-07-24 09:27] LABS: Partial Thromboplastin Time 25.8 sec (22.0-30.0); Prothrombin Time 10.9 sec (9.0-12.0)
[2022-07-24 14:49] LABS: % Iron Saturation 25.05 (12.00-45.00); ALT 48 U/L (8-44); AST 32 U/L (13-35); Albumin 4.2 g/dL (3.8-4.9); Alkaline Phosphatase 90 U/L (41-126); BUN/Creat Ratio 22.66 Ratio (12.00-20.00); Blood Urea Nitrogen 13.3 mg/dL (9.0-27.0); Calcium 9.5 mg/dL (8.7-10.3); Carbon Dioxide 20.9 mmol/L (20.0-27.5); Chloride 102 mmol/L (96-109); Globulin 2.2 g/dL (1.6-3.3); Glucose 79 mg/dL (70-110); Iron 76 ug/dL (50-170); Magnesium 1.7 mg/dL (1.5-2.4); Non-African American GFR(CKD) 116.5 (60.0-200.0); Phosphorus 3.3 mg/dL (2.4-5.1); Potassium 3.9 mmol/L (3.5-5.5); Sodium 138 mmol/L (135-145); Total Iron Binding Capacity 304 ug/dL (228-460); Total Protein 6.3 g/dL (6.2-8.2)
[2022-07-24 15:25] LABS: Chol/HDL Ratio 3.63 Ratio; LDL Cholesterol,Calculated 88.2 mg/dL (0.0-131.0); Prealbumin 21.7 mg/dL (18.0-42.0); VLDL Calculation 14.74 mg/dL (5.00-40.00)
[2022-07-24 17:00] LABS: HCT 43.9 % (37.2-46.3); HGB 14.8 g/dL (12.0-15.0); MCH 29.1 pg (27.0-32.0); MCHC 33.7 g/dL (32.0-37.0); MCV 86.4 fL (80.0-97.0); Mean Platelet Volume 13.1 fL (9.5-12.2); NRBC Per 100 WBC 0 /100 WBCS (0.0-0.0); Platelet Count 269 X 10*3/uL (140-440); RBC 5.08 X 10*6/uL (4.10-5.20); RDW 13.8 % (11.5-14.5); WBC 7.74 X 10*3/uL (4.50-10.00)
[2022-07-25 12:08] LABS: Zinc, Serum 91 ug/dL (60-130)
== END | disposition home or self-care (01) ==
LOC: LABWHC1 08:36
PROVIDERS: ATTEND Surgery Plastic and Reconstructive Surgery
DX: E89.1 Postprocedural hypoinsulinemia (principal); D50.8 Other iron deficiency anemias; E66.01 Morbid (severe) obesity due to excess calories; K90.89 Other intestinal malabsorption; K74.1 Hepatic sclerosis; N19 Unspecified kidney failure; T56.894A Toxic effect of other metals, undetermined, initial encounter; K50.90 Crohn's disease, unspecified, without complications; K90.9 Intestinal malabsorption, unspecified
CPT/HCPCS: 36415; 80053; 80061; 82306; 82525; 82607; 82728; 82746; 83036; 83540; 83550; 83735; 83970; 84100; 84134; 84255; 84425; 84443; 84590; 84630; 85027; 85610; 85730

== ENCOUNTER → 2023-07-29 | Outpatient (CLI) | payer BC ==
[2023-07-29 17:43] VITALS: BP 135/71; PULSE 72; TEMP 98.1; BMI 35.1
--- NOTE | 2023-07-29 18:03 | P.BASOAP ---
Subjective Progress Note Date: 07/29/23 Highest 333 pounds. Lost over 100 pounds. 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 She has troubles wit greening. She pannciulitis. Risks of panniculitis. She is still losing weight. Objective - Vital Signs Vital signs: Vital Signs Temp 98.1 F 07/29/23 17:37 Pulse 72 07/29/23 17:37 Resp BP 135/71 07/29/23 17:37 Pulse Ox FiO2 Intake & Output 07/28/23 07/29/23 07/29/23 18:59 06:59 18:59 Weight 104.78 kg Assessment/Plan Plan: Date: 07/29/23 Initial Weight: 148.325 kg Initial BMI: 49.7 Current Weight: 104.78 kg Current BMI: 35.1 Type of Surgery: Total Volume in Band: Previous Volume: Volume Removed: Volume Added: Band Size:
== END ==
LOC: BARWHC3 17:31
PROVIDERS: ATTEND Surgery Plastic and Reconstructive Surgery
DX: Z53.9 Procedure and treatment not carried out, unspecified reason (principal)
CPT/HCPCS: 99211